=== PATIENT | female | born 1990 | race Caucasian/White ===

== ENCOUNTER 2017-04-05 23:27 | Emergency (ER) | payer SELFPAY ==
[~2017-04-05] VITALS: Ht 157.5 cm; Wt 63.5 kg
[2017-04-05 23:41] VITALS: BP 114/70
[2017-04-06 00:11] LABS: BASOPHILS % (AUTO) 0.6 % (0.0-2.0); EOSINOPHILS % (AUTO) 0.9 % (0.0-3.0); MEAN CORPUSCULAR HEMOGLOBIN 30.2 PG (27.0-31.0); MEAN CORPUSCULAR HGB CONC 34.4 G/DL (32.0-36.0); MEAN CORPUSCULAR VOLUME 88 FL (80-99); MEAN PLATELET VOLUME 7.8 FL (6.5-10.1); MONOCYTES % (AUTO) 9.6 % (1.0-10.0); PLATELET COUNT 310 K/UL (150-450); RED BLOOD COUNT 4.97 M/UL (4.20-5.40); RED CELL DISTRIBUTION WIDTH 12.9 % (11.6-14.8); WHITE BLOOD COUNT 10.2 K/UL (4.8-10.8)
[2017-04-06 00:24] LABS: ACETAMINOPHEN < 10 ug/mL (10-30); ALANINE AMINOTRANSFERASE 32 U/L (3-33); ALBUMIN/GLOBULIN RATIO 1.5 (1.0-2.7); ALCOHOL < 10 mg/dL; ANION GAP 16 (5-15); ASPARTATE AMINO TRANSFERASE 21 U/L (5-40); CALCIUM 9.8 mg/dL (8.6-10.2); CARBON DIOXIDE 25 mEQ/L (20-30); CHLORIDE 99 mEQ/L (98-107); CREATININE 0.8 mg/dL (0.5-0.9); GLOMERULAR FILTRATION RATE > 60 mL/min (>60); HEMOLYSIS 2; SODIUM 140 mEQ/L (135-145); TOTAL PROTEIN 7.2 g/dL (6.6-8.7)
[2017-04-06 00:39] VITALS: BP 124/72
[2017-04-06 00:41] LABS: APPEARANCE,URINE SLIGHTLY CLOUDY; KETONES,URINE NEGATIVE (NEGATIVE); LEUKOCYTE ESTERASE ,URINE 1+ (NEGATIVE); NITRITE,URINE NEGATIVE (NEGATIVE); PH,URINE 7 (4.5-8.0); PROTEIN,URINE NEGATIVE (NEGATIVE); UROBILINOGEN,URINE 1 MG/DL (0.0-1.0)
[2017-04-06 00:48] LABS: BACTERIA,URINE MODERATE /HPF; RBC,URINE 0-2 /HPF (0 - 2); SQUAMOUS EPITHELIAL CELL,UR FEW /LPF (NONE/OCC); WBC,URINE 30-40 /HPF (0 - 2)
[2017-04-06] MEDS ORDERED: Cephalexin 500mg cap ORAL ONE (01:30)
[2017-04-06] MEDS ORDERED: KEFLEX500 MG ORAL (03:27)
--- NOTE | 2017-04-06 03:28 | Emergency Room Report ---
History of Present Illness General Chief Complaint: Overdose Source: Patient, Significant Other, EMS (GUILLERMINA PERRIN M.D.) Present Illness HPI This is a 27-year-old female with a history of bipolar. She's not taking any medicine for this. She is currently living in sober living place for alcohol abuse. She was brought in with chief complaint of overdose. Patient denies any drug abuse. She took some unknown amount of pills and unknown name. She is very vague in describing what she took. Per EMS and police, witnessed it she took a handful of pills. According to her boyfriend, his friend told him they were Imitrex. Patient denies any suicidal thought homicidal thought. Initially she was very vague when asked about suicidal thoughts. (GUILLERMINA PERRIN M.D.) Allergies: Coded Allergies: No Known Allergies (Unverified , 04/05/17) Patient History Past Medical History: see triage record, old chart reviewed, psych hx Past Surgical History: other Pertinent Family History: none Social History: Reports: smoking Last Menstrual Period: UNKNOWN Now: No Immunizations: other Reviewed Nursing Documentation: PMH: Agreed, PSxH: Agreed (GUILLERMINA PERRIN M.D.) Nursing Documentation-PMH Past Medical History: No Stated History (GUILLERMINA PERRIN M.D.) Review of Systems Eye: Denies: blurred vision, eye pain ENT: Denies: ear pain, nose congestion, throat swelling Respiratory: Denies: cough, shortness of breath Cardiovascular: Denies: chest pain, palpitations Gastrointestinal: Denies: abdominal pain, diarrhea, nausea, vomiting Musculoskeletal: Denies: back pain, joint pain Skin: Denies: rash Neurological: Denies: headache, numbness Endocrine: Denies: increased thirst, increased urine Hematologic/Lymphatic: Denies: easy bruising All Other Systems: negative except mentioned in HPI (GUILLERMINA PERRIN M.D.) Physical Exam Vital Signs Date Time Temp Pulse Resp B/P Pulse Ox O2 Delivery O2 Flow Rate FiO2 04/05/17 23:26 98.2 77 18 106/75 98 Room Air vitals normal Sp02 EP Interpretation: reviewed, normal General Appearance: well appearing, no apparent distress, alert Head: normocephalic, atraumatic Eyes: bilateral eye EOMI, bilateral eye PERRL ENT: hearing grossly normal, normal pharynx Neck: full range of motion, supple, no meningismus Respiratory: chest non-tender, lungs clear, normal breath sounds Cardiovascular #1: regular rate, rhythm, no murmur Gastrointestinal: normal bowel sounds, non tender, no mass, no organomegaly, no bruit, non-distended Musculoskeletal: back normal, gait/station normal, normal range of motion Psychiatric: depressed affect Skin: warm/dry (GUILLERMINA PERRIN M.D.) Medical Decision Making Diagnostic Impression: Primary Impression: Drug overdose Qualified Codes: T50.904A - Poisoning by unspecified drugs, medicaments and biological substances, undetermined, initial encounter Additional Impression: UTI (urinary tract infection) Qualified Codes: N30.00 - Acute cystitis without hematuria ER Course Patient with intentional overdose of medication. Questionable suicidal attempt. She is now adamant that she's not suicidal or homicidal. She does not want to be placed on a 5150. She will be to be evaluated by psychiatrist in the morning. I will hold her until then. she received a dose of antibiotics in the ER for UTI. I will sign pt out to Dr. Acevedo for final disposition. Lab Results Impression labs unremarkable (GUILLERMINA PERRIN M.D.) ER Course Patient was seen by psychiatric evaluation team Placed on a 5150 And will be transferred to a psychiatric facility for continued care (MACHO ACEVEDO D.O.) Last Vital Signs Date Time Temp Pulse Resp B/P Pulse Ox O2 Delivery O2 Flow Rate FiO2 04/06/17 00:39 98.2 80 17 124/72 98 Room Air Status: improved (GUILLERMINA PERRIN M.D.) Status: improved (MACHO ACEVEDO D.O.) Disposition: XFER TO PSYCH HOSP/UNIT Condition: Stable Scripts Cephalexin* (KEFLEX*) 500 Mg Capsule 500 MG ORAL TID, #21 CAP 0 Refills Prov: GUILLERMINA PERRIN M.D. 04/06/17 Referrals: NOT CHOSEN IPA/,REFERRING (PCP) Patient Instructions: OVERDOSE, Intentional (Adult) GUILLERMINA PERRIN M.D. April 06, 2017 03:28 MACHO ACEVEDO D.O. April 06, 2017 10:13
[2017-04-06 06:03] VITALS: BP 103/69
[2017-04-06 10:50] VITALS: BP 98/52
[2017-04-06 11:06] VITALS: BP 98/52
[2017-04-09] MEDS ORDERED: NITROFURANTOIN100 M2 ORAL (15:34)
== END 2017-04-06 11:12 ==
LOC: EDBD 23:27 → EMR 23:45
DX: T50.904A Poisoning by unspecified drugs, medicaments and biological substances, undetermined, initial encounter (principal); N30.00 Acute cystitis without hematuria; F17.200 Nicotine dependence, unspecified, uncomplicated; Y92.9 Unspecified place or not applicable
CPT/HCPCS: 36415; 80053; 80300; 81003; 81025; 85025; 87086; 87181; 99283; G0480; 80329